=== PATIENT | female | born 1985 | race Caucasian/White ===

== ENCOUNTER 2020-11-11 04:01 | Emergency (ER) | payer OTHER ==
[~2020-11-11] VITALS: Ht 170.2 cm; Wt 45.4 kg
[2020-11-11] MEDS ORDERED: ACYCLOVIR 400400 MG PO (05:25)
[2020-11-11] MEDS ORDERED: HYDROCODON-ACE1 EAC8 PO (05:28)
[2020-11-11 05:44] VITALS: BP 128/90
[2020-11-17 21:06] LABS: HSV 1 DNA Negative (Negative); HSV 2 DNA Negative (Negative)
== END 2020-11-11 05:45 | disposition home or self-care (01) ==
LOC: M.ERS 04:01
PROVIDERS: Emergency Medicine
DX: A59.9 Trichomoniasis, unspecified (principal); A60.04 Herpesviral vulvovaginitis; F41.9 Anxiety disorder, unspecified; F32.9 Major depressive disorder, single episode, unspecified; F17.210 Nicotine dependence, cigarettes, uncomplicated